=== PATIENT | female | born 1975 | race Caucasian/White ===

== ENCOUNTER 2017-01-31 17:49 | Emergency (ER) | payer SELFPAY ==
[~2017-01-31] VITALS: Ht 157.5 cm; Wt 70.7 kg
[2017-01-31] MEDS ORDERED: FLUORESCEIN OPHTHALMIC 1 MG STRIP EACHEYE ONE (18:30)
[2017-01-31] MEDS ORDERED: PROPARACAINE OPHTH 0.5%, 15ML EACHEYE ONE (18:30)
[2017-01-31] MEDS ORDERED: DIPH,PERTUSS(ACELL),TET VAC/PF 0.5 ML IM-VACC ONE ×2 (18:30→18:40)
[2017-01-31] MEDS ORDERED: FLUORESCEIN OPHTHALMIC 1 MG STRIP ONE (18:46)
[2017-01-31] MEDS ORDERED: PROPARACAINE OPHTH 0.5%, 15ML ONE (18:48)
[2017-01-31] MEDS ORDERED: HYDROmorphone 1 MG/ML, 1ML IM ONE (19:00)
[2017-01-31] MEDS ORDERED: HYDROmorphone 2 MG/ML, 1ML ONE (19:04)
[2017-01-31 19:49] VITALS: BP 122/76
[2017-01-31] MEDS ORDERED: ERYTHROMYCIN OPHTH 0.5%, 1GM LEFTEYE SCH (22:00)
== END 2017-01-31 20:31 | disposition home or self-care (01) ==
LOC: ED 19:44
DX: S01.112A Laceration without foreign body of left eyelid and periocular area, initial encounter (principal); X58.XXXA Exposure to other specified factors, initial encounter; Y93.89 Activity, other specified; Y99.8 Other external cause status; Y92.009 Unspecified place in unspecified non-institutional (private) residence as the place of occurrence of the external cause
CPT/HCPCS: 70486; 96372; 99284; J1170

== ENCOUNTER 2017-09-28 14:10 | Emergency (ER) | payer OTHER ==
[~2017-09-28] VITALS: Ht 157.5 cm; Wt 67.0 kg
[2017-09-28] MEDS ORDERED: METHOCARBAMOL 750 MG TABLET PO ONE (14:30)
[2017-09-28] MEDS ORDERED: KETOROLAC 30 MG/1 ML IM ONE (14:30)
[2017-09-28] MEDS ORDERED: KETOROLAC 30 MG/1 ML ONE (14:38)
[2017-09-28] MEDS ORDERED: METHOCARBAMOL 750 MG TABLET ONE (14:38)
[2017-09-28] MEDS ORDERED: OXYcodone/APAP 5/325MG TABLET ONE (15:27)
[2017-09-28] MEDS ORDERED: OXYcodone/APAP 5/325MG TABLET PO ONE (15:30)
[2017-09-28 15:39] VITALS: BP 105/66
== END 2017-09-28 15:45 | disposition home or self-care (01) ==
LOC: ED 15:39
DX: S39.012A Strain of muscle, fascia and tendon of lower back, initial encounter (principal); X58.XXXA Exposure to other specified factors, initial encounter; Y93.89 Activity, other specified; Y92.89 Other specified places as the place of occurrence of the external cause; Y99.8 Other external cause status
CPT/HCPCS: 72110; 96372; 99284; J1885